=== PATIENT | female | born 1965 | race Caucasian/White ===

== ENCOUNTER 2020-08-23 10:00 | Day surgery (SDC) | payer OTHER ==
[2020-08-21 15:38] LABS: COVID AG,FIA SOURCE NASOPHARYNGEAL
[~2020-08-23] VITALS: Ht 160 cm; Wt 90.0 kg
[~2020-08-23 10:00] MED LIST: APIX5TAB PO; ATOR40TA28 PO; CHOL100018 PO; DRON400T PO; FURO80 PO; GABA-1181 PO; LOSA25TA21 PO; METH-386 PO; PLEC3TAB PO; SODIUM CHLORIDE 0.9% 1,000 ML ONE
[2020-08-23] MEDS ORDERED: SODIUM CHLORIDE 0.9% 1,000 ML IV ONE (10:30)
[2020-08-23] MEDS ORDERED: PROPOFOL 1% 20 ML VIAL IVP ONE (12:00)
== END 2020-08-23 14:20 | disposition home or self-care (01) ==
LOC: SURGERY 10:00
PROVIDERS: ATTEND Student in an Organized Health Care Education/Training Program
DX: K59.00 Constipation, unspecified (principal); K64.8 Other hemorrhoids; I10 Essential (primary) hypertension; I25.2 Old myocardial infarction; Z86.73 Personal history of transient ischemic attack (TIA), and cerebral infarction without residual deficits
CPT/HCPCS: 45378; 87426; 93005; J2704; J7030